=== PATIENT | female | born 1955 | race Two or more races ===

== ENCOUNTER → 2020-10-02 | Outpatient (CLI) | payer MEDICARE, OTHER | LOC: KOH-I 09-29 13:45 → MRI 09-29 14:45 → KOH-I 13:00 | DX: M51.16 Intervertebral disc disorders with radiculopathy, lumbar region (principal); M25.362 Other instability, left knee; M51.27 Other intervertebral disc displacement, lumbosacral region | CPT/HCPCS: 72148 ==

== ENCOUNTER → 2021-02-01 | Outpatient (CLI) | payer MEDICARE, OTHER | LOC: KOH-I 08:00 | DX: M25.511 Pain in right shoulder (principal); M50.222 Other cervical disc displacement at C5-C6 level; M75.81 Other shoulder lesions, right shoulder | CPT/HCPCS: 72141; 73221 ==

== ENCOUNTER → 2021-12-04 | Outpatient (CLI) | payer MEDICARE, OTHER ==
[2021-12-04 13:58] LABS: HEMOGLOBIN 11.2 gm/dl (12.3-15.3); RED BLOOD COUNT 5.9 M/UL (4.00-5.10); WHITE BLOOD COUNT 7.6 K/UL (4.5-11.0)
[2021-12-04 14:23] LABS: BUN/CREATININE RATIO 14 (0-10)
== END ==
LOC: LAB 13:34
PROVIDERS: Nurse Practitioner
DX: R07.9 Chest pain, unspecified (principal); R05.9 Cough, unspecified; R94.31 Abnormal electrocardiogram [ECG] [EKG]
CPT/HCPCS: 36415; 71046; 80053; 84484; 85027; 93005